=== PATIENT | female | born 1965 | race Caucasian/White ===

== ENCOUNTER 2017-01-31 16:34 | Inpatient (IN) | payer BC ==
[~2017-01-31] VITALS: Ht 165.1 cm; Wt 62.9 kg
[2017-01-31] MEDS ORDERED: SODIUM CHLORIDE 0.9% 1000ML 1,000 ML IV STA (16:44)
[2017-01-31] MEDS ORDERED: ONDANSETRON INJ 2 MG/ML 2 ML VIAL IV STA (16:44)
[2017-01-31] MEDS ORDERED: HYDROmorphone INJ 1 MG/ML SYR IV STA (16:44)
[2017-01-31 17:22] LABS: BASO % 0.4 %; BASO ABS # 0.04 K/uL (0-0.2); COMPLETE YES; EOS % 0.9 %; HEMATOCRIT 37.2 % (37-47); IG% 0.2 %; MEAN CELL VOLUME 85.7 fL (80-100); MEAN CORPUSCULAR HEMOGLOBIN 28.1 pg (25-34); MEAN CORPUSCULAR HGB CONC 32.8 g/dl (32-36); MONO % 7.9 %; NEUT % 71.6 %; PLATELET COUNT 271 K/uL (130-400); RED BLOOD COUNT 4.34 M/uL (4.2-5.4); WHITE BLOOD COUNT 10.02 K/uL (4.8-10.8)
--- NOTE | 2017-01-31 17:29 | DIAGNOSTIC IMAGING REPORT ---
CT OF THE ABDOMEN AND PELVIS WITHOUT CONTRAST, STONE PROTOCOL CLINICAL HISTORY: Left flank pain and nausea. COMPARISON STUDY: None. TECHNIQUE: Helical axial images of the abdomen and pelvis were obtained without IV or oral contrast according to renal stone protocol. A dose lowering technique was utilized adhering to the principles of ALARA. FINDINGS: An 8 mm x 4 mm distal left ureteral calculus results in moderate left hydronephrosis and hydroureter. There is a 4 mm calculus within the lower pole of the right kidney. There are no right ureteral calculi. There is mild left perinephric and periureteral infiltration. Evaluation of the remainder of the abdomen and pelvis is suboptimal as unenhanced exam. There are two intermediate attenuation lesions within the lateral segment of the left liver that measure up to 1 cm. These are low suspicion. There is minimal layering hyperdense material within the gallbladder. The spleen, adrenal glands and pancreas are normal. There is no biliary or pancreatic ductal dilatation. There is no evidence for a bowel obstruction. No suspicious skeletal lesions are present. IMPRESSION: 1. 8 mm x 4 mm distal left ureteral calculus with resultant moderate left hydroureteronephrosis. 2. 4 mm right renal calculus. 3. Two intermediate attenuation lateral segment hepatic lesions. These are likely benign but a follow-up nonemergent ultrasound is recommended. Electronically signed by: Dominick Mendoza M.D. 01/31/2017 5:27 PM Dictated Date/Time: 01/31/2017 5:20 PM
[2017-01-31 17:44] LABS: BUN/CREATININE RATIO 17.6 (10-20); CALCIUM 9.2 mg/dl (8.5-10.1); CREATININE 1.1 mg/dl (0.60-1.20); POTASSIUM 3.6 mmol/L (3.5-5.1)
[2017-01-31] MEDS ORDERED: HYDROmorphone INJ 0.5 MG/0.5 ML SYR IV PRN (18:45)
[2017-01-31] MEDS ORDERED: ACETAMINOPHEN 325 MG TAB PO PRN (18:45)
[2017-01-31] MEDS ORDERED: ONDANSETRON INJ 2 MG/ML 2 ML VIAL IV PRN (18:45)
--- NOTE | 2017-01-31 18:50 | EMERGENCY ROOM VISIT NOTE ---
History First contact with patient: 16:39 Chief Complaint: FLANK PAIN Stated Complaint: L SIDE & FLANK PAIN History of Present Illness The patient is a 51 year old female who presents to the Emergency Room with complaints of left flank pain. The patient is from [place] and is in town taking care of her [id number]. She states that over the past 1 week, she has had a feeling of incomplete emptying but has not had any dysuria, hematuria or pain. She states that approximately 30 minutes prior to arrival, she had a sudden onset of severe left flank pain. The pain radiates into her abdomen. She denies any history of kidney stones or kidney infections. She denies any trauma to the flank. She rates her discomfort a 10/10. She reports nausea, but no vomiting. She denies chest pain, shortness of breath, hematuria, vaginal bleeding/discharge or changes in bowel movements. Review of Systems A complete 10 point review of systems was reviewed with the patient with pertinent positives and negatives as per history of present illness. All else were negative. Past Medical/Surgical History Medical Problems: (1) Nephrolithiasis Social History Smoking Status: Never Smoker Current/Historical Medications No Active Prescriptions or Reported Meds Physical Exam Vital Signs Date Time Temp Pulse Resp B/P (MAP) Pulse Ox O2 Delivery O2 Flow Rate FiO2 01/31/17 18:24 52 14 142/75 99 Room Air 01/31/17 16:55 59 01/31/17 16:53 36.7 58 22 149/90 100 Room Air Physical Exam VITALS: Vitals are noted on the nurse's note and reviewed by myself. Vital signs stable. GENERAL: This is a 51-year-old female, writhing on the bed and appears to be in pain, nondiaphoretic, well-developed well-nourished. HEART: Regular rate and rhythm without murmurs gallops or rubs. LUNGS: Clear to auscultation bilaterally without wheezes, rales or rhonchi. ABDOMEN: Positive bowel sounds x 4. Soft, moderate tenderness over the left lower quadrant. No guarding or rebound tenderness. MUSCULOSKELETAL: Positive left CVA tenderness. NEURO: Patient was alert and oriented to person place and time. Medical Decision & Procedures ER Provider Diagnostic Interpretation: CT OF THE ABDOMEN AND PELVIS WITHOUT CONTRAST, STONE PROTOCOL FINDINGS: An 8 mm x 4 mm distal left ureteral calculus results in moderate left hydronephrosis and hydroureter. There is a 4 mm calculus within the lower pole of the right kidney. There are no right ureteral calculi. There is mild left perinephric and periureteral infiltration. Evaluation of the remainder of the abdomen and pelvis is suboptimal as unenhanced exam. There are two intermediate attenuation lesions within the lateral segment of the left liver that measure up to 1 cm. These are low suspicion. There is minimal layering hyperdense material within the gallbladder. The spleen, adrenal glands and pancreas are normal. There is no biliary or pancreatic ductal dilatation. There is no evidence for a bowel obstruction. No suspicious skeletal lesions are present. IMPRESSION: 1. 8 mm x 4 mm distal left ureteral calculus with resultant moderate left hydroureteronephrosis. 2. 4 mm right renal calculus. 3. Two intermediate attenuation lateral segment hepatic lesions. These are likely benign but a follow-up nonemergent ultrasound is recommended. Laboratory Results 01/31/17 17:06 Red Blood Count 4.34, Mean Corpuscular Volume 85.7, Mean Corpuscular Hemoglobin 28.1, Mean Corpuscular Hemoglobin Concent 32.8, Mean Platelet Volume 9.0, Neutrophils (%) (Auto) 71.6, Lymphocytes (%) (Auto) 19.0, Monocytes (%) (Auto) 7.9, Eosinophils (%) (Auto) 0.9, Basophils (%) (Auto) 0.4, Neutrophils # (Auto) 7.18, Lymphocytes # (Auto) 1.90, Monocytes # (Auto) 0.79, Eosinophils # (Auto) 0.09, Basophils # (Auto) 0.04 01/31/17 17:06 Test 01/31/17 16:44 01/31/17 17:06 White Blood Count 10.02 K/uL (4.8-10.8) Red Blood Count 4.34 M/uL (4.2-5.4) Hemoglobin 12.2 g/dL (12.0-16.0) Hematocrit 37.2 % (37-47) Mean Corpuscular Volume 85.7 fL (80-100) Mean Corpuscular Hemoglobin 28.1 pg (25-34) Mean Corpuscular Hemoglobin Concent 32.8 g/dl (32-36) Platelet Count 271 K/uL (130-400) Mean Platelet Volume 9.0 fL (7.4-10.4) Neutrophils (%) (Auto) 71.6 % Lymphocytes (%) (Auto) 19.0 % Monocytes (%) (Auto) 7.9 % Eosinophils (%) (Auto) 0.9 % Basophils (%) (Auto) 0.4 % Neutrophils # (Auto) 7.18 K/uL (1.4-6.5) Lymphocytes # (Auto) 1.90 K/uL (1.2-3.4) Monocytes # (Auto) 0.79 K/uL (0.11-0.59) Eosinophils # (Auto) 0.09 K/uL (0-0.5) Basophils # (Auto) 0.04 K/uL (0-0.2) RDW Standard Deviation 42.8 fL (36.4-46.3) RDW Coefficient of Variation 13.6 % (11.5-14.5) Immature Granulocyte % (Auto) 0.2 % Immature Granulocyte # (Auto) 0.02 K/uL (0.00-0.02) Anion Gap 11.0 mmol/L (3-11) Est Creatinine Clear Calc Drug Dose 53.8 ml/min Estimated GFR () 66.8 Estimated GFR (Non- 57.7 BUN/Creatinine Ratio 17.6 (10-20) Calcium Level 9.2 mg/dl (8.5-10.1) Total Bilirubin 0.4 mg/dl (0.2-1) Direct Bilirubin 0.1 mg/dl (0-0.2) Aspartate Amino Transf (AST/SGOT) 18 U/L (15-37) Alanine Aminotransferase (ALT/SGPT) 23 U/L (12-78) Alkaline Phosphatase 58 U/L (45-117) Total Protein 7.4 gm/dl (6.4-8.2) Albumin 3.8 gm/dl (3.4-5.0) Medications Administered Medications (Trade) Dose Ordered Sig/Maki Route Start Time Stop Time Status Last Admin Dose Admin Sodium Chloride 1,000 ml @ 999 mls/hr Q1H1M STAT IV 01/31/17 16:44 01/31/17 17:44 DC 01/31/17 16:44 999 MLS/HR Ondansetron HCl (Zofran Inj) 4 mg NOW STAT IV 01/31/17 16:44 01/31/17 16:45 DC 01/31/17 16:51 4 MG Hydromorphone HCl (Dilaudid Inj) 1 mg NOW STAT IV 01/31/17 16:44 01/31/17 16:45 DC 01/31/17 16:51 1 MG ED Course The patient was evaluated as above. Labs were drawn and IV access was obtained. Patient was medicated with 1 mg Dilaudid and [address] of the abdomen and pelvis was performed and read by radiology as above. Patient was reevaluated and felt slightly better. Options of care were discussed with the patient including discharge home versus admission for pain control and management. The patient states that her pain is still a 5/10 and she would prefer to be admitted. Case was discussed with the [facility], Dr. Monk. They agreed to evaluate the patient for admission. Medical Decision Differential diagnosis includes kidney stone, pyelonephritis, ovarian torsion, cholecystitis, pancreatitis, among others. The patient is a 51-year-old female who presents today complaining of sitting onset of left flank pain. She received a total of 8 mg morphine en route and still complained of 10/10 pain on my evaluation. Labs revealed no leukocytosis or anemia. Kidney and liver functions are within normal limits. Patient is afebrile. CT of the abdomen and pelvis showed an 8 mm left ureteral calculus with hydronephrosis. Patient was still having a fair amount of pain after 2 doses of morphine dose of IV Dilaudid. Patient was admitted to the [facility] service for further treatment. Urine was pending at that time, however I do not have high clinical suspicion for infection. Medication Reconcilliation Current Medication List: was personally reviewed by dc Blood Pressure Screening Patient's blood pressure: Normal blood pressure Blood pressure disposition: Elevated BP felt to be situational Impression Primary Impression: Left ureteral calculus Departure Information Prescriptions No Active Prescriptions or Reported Meds Referrals No Doctor, Assigned (PCP) Patient Instructions [facility]
[2017-01-31 18:58] LABS: PREG INTERNAL NEGATIVE QC NEG CLEAR BACKGROUND; PREG INTERNAL POSITIVE QC POS CONTROL LINE; URINE APPEARANCE CLOUDY (CLEAR); URINE BILIRUBIN NEG (NEG); URINE COLOR YELLOW; URINE EPITHELIAL CELL AUTO >30 /lpf (0-5); URINE NITRITE NEG (NEG); URINE PH >= 9.0 (4.5-7.5); URINE SPECIFIC GRAVITY 1.018 (1.000-1.030); UROBILINOGEN NEG (NEG); ZZUR CULT IF INDIC CLEAN CATCH NO
[2017-01-31 18:59] LABS: MANUAL MICROSCOPIC REQUIRED? NO; REVIEW REQ? YES
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
[2017-01-31] MEDS ORDERED: MoRPHine SULFATE 2 MG/ML CARP IV PRN (19:15)
[2017-01-31 20:15] VITALS: BP 113/69; PULSE 48; TEMP 36.5; O2SAT 97; Ht 165.1 cm; Wt 62.9 kg
[2017-01-31 20:18] VITALS: BP 113/69; PULSE 48; TEMP 36.5; O2SAT 97
[2017-01-31] MEDS: SODIUM CHLORIDE 0.9% 1000ML 1,000 ML IV SCH (20:32)
[2017-01-31 23:04] VITALS: BP 109/64; PULSE 57; TEMP 36.8; O2SAT 94
[2017-02-01] VITALS (8 sets, daily range): BP systolic 109–135; BP diastolic 66–72; PULSE 39–82; TEMP 36.3–36.7; O2SAT 95–100
[2017-02-01] MEDS: SODIUM CHLORIDE 0.9% 1000ML 1,000 ML IV SCH ×3 (02:26→19:22)
[2017-02-01 07:02] LABS: BASO % 0.3 %; BASO ABS # 0.02 K/uL (0-0.2); COMPLETE YES; EOS % 1.3 %; HEMATOCRIT 31.1 % (37-47); IG% 0.1 %; LYMPH % 27.2 %; LYMPH ABS # 2.05 K/uL (1.2-3.4); MEAN CELL VOLUME 87.9 fL (80-100); MEAN CORPUSCULAR HEMOGLOBIN 28.5 pg (25-34); MEAN CORPUSCULAR HGB CONC 32.5 g/dl (32-36); MONO % 7.3 %; NEUT % 63.8 %; PLATELET COUNT 215 K/uL (130-400); RED BLOOD COUNT 3.54 M/uL (4.2-5.4); WHITE BLOOD COUNT 7.54 K/uL (4.8-10.8)
[2017-02-01 07:49] LABS: BUN/CREATININE RATIO 22.8 (10-20); CALCIUM 8.2 mg/dl (8.5-10.1); CREATININE 0.76 mg/dl (0.60-1.20); POTASSIUM 4.1 mmol/L (3.5-5.1)
[2017-02-01] MEDS ORDERED: CIPROFLOXACIN 400MG / 200ML D5W IV ONE (08:30)
[2017-02-01] MEDS ORDERED: CIPROFLOXACIN 400MG / D5W IV SCH (08:30)
--- NOTE | 2017-02-01 08:44 | DIAGNOSTIC IMAGING REPORT ---
CHEST 2 VIEWS ROUTINE, KUB HISTORY: 51 years-old Female preoperative exam. History of kidney stone. COMPARISON: CT abdomen and pelvis 01/31/2017 TECHNIQUE: Frontal and lateral views of the chest with KUB radiograph. FINDINGS: Cardiomediastinal and hilar silhouettes are within normal limits. There is no pneumothorax, pleural effusion or focal airspace consolidation. Bones of the chest appear to be grossly intact. 8 mm calculus in the region of the left ureterovesicular junction is redemonstrated. Additionally, there are phleboliths within the pelvis. 4 mm calculus of the inferior pole right kidney is redemonstrated. Bowel gas pattern is nonobstructive. There is no fracture. IMPRESSION: 1. 8 mm calculus of the left ureterovesicular junction is redemonstrated. 2. 4 mm nonobstructing calculus of the inferior pole right kidney is unchanged. 3. No acute cardiopulmonary process. The above report was generated using voice recognition software. It may contain grammatical, syntax or spelling errors. Electronically signed by: Mane Chung M.D. 02/01/2017 8:42 AM Dictated Date/Time: 02/01/2017 8:39 AM
--- NOTE | 2017-02-01 11:15 | Urology Consultation ---
History General Date of Service: Feb 01, 2017. Chief Complaint: left UVJ stone Primary Care Physician: No Doctor, Assigned Pt seen a urologist before?: No History of Present Illness 51 yo female presents to [facility] with c/o left flank pain that became severe yesterday. She is visiting her in-laws from [place], and had planned to leave town today. CT scan showing an 8mm left UVJ stone. She has no previous hx of stones. Pain is currently tolerable. Denies n/v. Denies dysuria or hematuria. She is afebrile. White count and Cr are normal. Imaging Imaging: CT, KUB Laboratory Last 24 Hours Test 01/31/17 17:06 01/31/17 18:42 02/01/17 06:37 White Blood Count 10.02 K/uL 7.54 K/uL Red Blood Count 4.34 M/uL 3.54 M/uL Hemoglobin 12.2 g/dL 10.1 g/dL Hematocrit 37.2 % 31.1 % Mean Corpuscular Volume 85.7 fL 87.9 fL Mean Corpuscular Hemoglobin 28.1 pg 28.5 pg Mean Corpuscular Hemoglobin Concent 32.8 g/dl 32.5 g/dl Platelet Count 271 K/uL 215 K/uL Mean Platelet Volume 9.0 fL 9.0 fL Neutrophils (%) (Auto) 71.6 % 63.8 % Lymphocytes (%) (Auto) 19.0 % 27.2 % Monocytes (%) (Auto) 7.9 % 7.3 % Eosinophils (%) (Auto) 0.9 % 1.3 % Basophils (%) (Auto) 0.4 % 0.3 % Neutrophils # (Auto) 7.18 K/uL 4.81 K/uL Lymphocytes # (Auto) 1.90 K/uL 2.05 K/uL Monocytes # (Auto) 0.79 K/uL 0.55 K/uL Eosinophils # (Auto) 0.09 K/uL 0.10 K/uL Basophils # (Auto) 0.04 K/uL 0.02 K/uL RDW Standard Deviation 42.8 fL 46.1 fL RDW Coefficient of Variation 13.6 % 14.1 % Immature Granulocyte % (Auto) 0.2 % 0.1 % Immature Granulocyte # (Auto) 0.02 K/uL 0.01 K/uL Sodium Level 142 mmol/L 143 mmol/L Potassium Level 3.6 mmol/L 4.1 mmol/L Chloride Level 107 mmol/L 112 mmol/L Carbon Dioxide Level 24 mmol/L 27 mmol/L Anion Gap 11.0 mmol/L 4.0 mmol/L Blood Urea Nitrogen 19 mg/dl 17 mg/dl Creatinine 1.10 mg/dl 0.76 mg/dl Est Creatinine Clear Calc Drug Dose 53.8 ml/min 77.9 ml/min Estimated GFR () 66.8 104.5 Estimated GFR (Non- 57.7 90.2 BUN/Creatinine Ratio 17.6 22.8 Random Glucose 105 mg/dl 95 mg/dl Calcium Level 9.2 mg/dl 8.2 mg/dl Total Bilirubin 0.4 mg/dl Direct Bilirubin 0.1 mg/dl Aspartate Amino Transf (AST/SGOT) 18 U/L Alanine Aminotransferase (ALT/SGPT) 23 U/L Alkaline Phosphatase 58 U/L Total Protein 7.4 gm/dl Albumin 3.8 gm/dl Urine Color YELLOW Urine Appearance CLOUDY Urine pH >= 9.0 Urine Specific Kersey 1.018 Urine Protein NEG Urine Glucose (UA) NEG Urine Ketones TRACE Urine Occult Blood 1+ Urine Nitrite NEG Urine Bilirubin NEG Urine Urobilinogen NEG Urine Leukocyte Esterase TRACE Urine WBC (Auto) 1-5 /hpf Urine RBC (Auto) 10-30 /hpf Urine Hyaline Casts (Auto) 1-5 /lpf Urine Epithelial Cells (Auto) >30 /lpf Urine Bacteria (Auto) NEG Urine Renal Epithelial Cells 0-5 /lpf Urine Test NEG Hepatitis C Antibody Screen NEG Problem List Medical Problems: (1) Left ureteral calculus Status: Acute Past History other (bradycardia) Past Surgical History: no surgical history Family History FH: colon cancer MOTHER FH: pancreatic cancer FATHER Social History Smoking: non-smoker Alcohol: occasional Marital status: Housing status: lives with family, lives with significant other Allergies Coded Allergies: No Known Allergies (Unverified , 01/31/17) Medications Home Medications: Home Meds and Scripts Medications Dose Route/Sig Max Daily Dose Days Date Category No Active Prescriptions or Reported Medications Rx Inpatient Medications: Current Inpatient Medications Medications (Trade) Dose Ordered Sig/Maki Route Start Time Stop Time Status Last Admin Dose Admin Acetaminophen (Tylenol Tab) 650 mg Q4H PRN PO 01/31/17 18:45 03/02/17 18:44 Ondansetron HCl (Zofran Inj) 4 mg Q6H PRN IV 01/31/17 18:45 03/02/17 18:44 01/31/17 19:57 4 MG Hydromorphone HCl (Dilaudid Inj) 0.5 mg Q3HWA PRN IV 01/31/17 18:45 02/14/17 18:44 01/31/17 19:57 0.5 MG Sodium Chloride 1,000 ml @ 125 mls/hr Q8H IV 01/31/17 18:46 03/02/17 18:45 02/01/17 10:26 125 MLS/HR Oxycodone/ Acetaminophen (Percocet 5-325mg Tab) 1 tab Q4H PRN PO 01/31/17 19:15 02/14/17 19:14 Morphine Sulfate (MoRPHine SULFATE INJ) 1 mg Q4H PRN IV 01/31/17 19:15 02/14/17 19:14 Ciprofloxacin/ Dextrose 400 mg/ Prmx 200 ml @ 100 mls/hr PREOP IV 02/01/17 08:30 02/01/17 18:00 Review of Systems Review of Systems Constitutional: No fever, No chills Eyes: No blurred vision Neurological: No dizzy Endocrine: No excessive thirst Gastrointestinal: No abdominal pain, No nausea, No vomiting Cardiovascular: No chest pain Respiratory: No shortness of breath Skin: No rash Musculoskeletal: No back pain Female : No painful urination, No blood in urine Physical Exam Vital Signs: Vital Signs Past 12 Hours Date Time Temp Pulse Resp B/P (MAP) Pulse Ox O2 Delivery O2 Flow Rate FiO2 02/01/17 07:10 42 02/01/17 07:10 Room Air 02/01/17 07:05 36.7 39 18 109/67 (81) 96 Room Air 02/01/17 00:30 Room Air Physical Exam: General Appearance: no apparent distress Eyes: bilateral eyes normal inspection ENT: hearing grossly normal Neck: no JVD Respiratory/Chest: no respiratory distress, no accessory muscle use Cardiovascular: no JVD Extremities: normal inspection Neurologic/Psychiatric: alert, normal mood/affect, oriented x 3 Skin: normal color Assessment & Plan Assessment & Plan Treatment Planned: ureteroscopy w/ laser, cystoscopy w/ stent A/P: 8mm left UVJ stone Tx options discussed with the pt today have included a trial of passage with MET (unlikely given the size of the stone), ESWL (not available until Tuesday of this week), and a cystoscopy with left ureteral stent placement and laser lithotripsy. She prefers a left URS/LL with the hopes that she will be able to travel home to [place] after. Risks and benefits of the procedure discussed with the pt. All questions answered. Consent obtained. Will get a pre-op chest x-ray and EKG. In regards to her bradycardia, will consult anesthesia and the hospitalist for input. She is an active female, but noted to have a pulse of 39 earlier this morning. The pt will need to establish care with a urologist in [place] for stent removal. Recommend she take copies of all hospital records and films for review. Thanks for the consult. Will continue to follow along with primary service.
[2017-02-01] MEDS ORDERED: DEXAMETHASONE SOD INJ 4 MG/ML VIAL ONE (14:22)
[2017-02-01] MEDS ORDERED: LIDOCAINE HCL 2% 2 ML VIAL (20MG/ML) ONE (14:22)
[2017-02-01] MEDS ORDERED: PROPOFOL IV EMULSION 10 MG/ML 20 ML VIAL IV ONE (14:22)
[2017-02-01] MEDS ORDERED: ONDANSETRON INJ 2 MG/ML 2 ML VIAL ONE (14:22)
[2017-02-01] MEDS ORDERED: MIDAZOLAM HCL 1 MG/ML 2ML VIAL ONE (14:22)
[2017-02-01] MEDS ORDERED: FENTANYL CITRATE INJ 50 MCG/1 ML 2 ML VIAL ONE (14:22)
[2017-02-01] MEDS ORDERED: KETOROLAC TROMETHAMINE 30 MG/ML VIAL ONE (14:22)
[2017-02-01] MEDS ORDERED: PROMETHAZINE HCL INJ 6.25 MG in SODIUM CHLORIDE 0.9% 50ML 50 ML IV PRN (15:30)
[2017-02-01] MEDS ORDERED: ONDANSETRON INJ 2 MG/ML 2 ML VIAL IV PRN (15:30)
[2017-02-01] MEDS ORDERED: EpHEDrine SULFATE INJ 50 MG/ML AMP IV PRN (15:30)
[2017-02-01] MEDS ORDERED: FENTANYL CITRATE INJ 50 MCG/1 ML 2 ML VIAL IV PRN (15:30)
[2017-02-01] MEDS ORDERED: ATROPINE SULFATE 0.1 MG/ML 5ML SYR IV PRN (15:30)
--- NOTE | 2017-02-01 15:56 | Hospitalist Progress Note ---
Hospitalist Progress Note Date of Service Feb 01, 2017. (Rosalee Manning PA-C) Subjective Pt evaluation today including: chart review, lab review, review of studies, conversation w/ individual pension consultant Pt was attempted to be seen twice early afternoon, however was in preop and then undergoing stent placement. Chart reviewed. (Rosalee Manning PA-C) Objective Vital Signs Date Time Temp Pulse Resp B/P (MAP) Pulse Ox O2 Delivery O2 Flow Rate FiO2 02/01/17 07:10 42 02/01/17 07:10 Room Air 02/01/17 07:05 36.7 39 18 109/67 (81) 96 Room Air 02/01/17 00:30 Room Air 01/31/17 23:04 36.8 57 16 109/64 (79) 94 Room Air 01/31/17 20:45 Room Air 01/31/17 20:18 36.5 48 18 113/69 (84) 97 Room Air 01/31/17 20:15 36.5 48 16 113/69 97 Room Air 01/31/17 20:06 92 18 140/83 93 01/31/17 18:24 52 14 142/75 99 Room Air 01/31/17 16:55 59 01/31/17 16:53 36.7 58 22 149/90 100 Room Air (Rosalee Manning PA-C) Laboratory Results Last 24 Hours Test 01/31/17 17:06 01/31/17 18:42 02/01/17 06:37 White Blood Count 10.02 K/uL 7.54 K/uL Red Blood Count 4.34 M/uL 3.54 M/uL Hemoglobin 12.2 g/dL 10.1 g/dL Hematocrit 37.2 % 31.1 % Mean Corpuscular Volume 85.7 fL 87.9 fL Mean Corpuscular Hemoglobin 28.1 pg 28.5 pg Mean Corpuscular Hemoglobin Concent 32.8 g/dl 32.5 g/dl Platelet Count 271 K/uL 215 K/uL Mean Platelet Volume 9.0 fL 9.0 fL Neutrophils (%) (Auto) 71.6 % 63.8 % Lymphocytes (%) (Auto) 19.0 % 27.2 % Monocytes (%) (Auto) 7.9 % 7.3 % Eosinophils (%) (Auto) 0.9 % 1.3 % Basophils (%) (Auto) 0.4 % 0.3 % Neutrophils # (Auto) 7.18 K/uL 4.81 K/uL Lymphocytes # (Auto) 1.90 K/uL 2.05 K/uL Monocytes # (Auto) 0.79 K/uL 0.55 K/uL Eosinophils # (Auto) 0.09 K/uL 0.10 K/uL Basophils # (Auto) 0.04 K/uL 0.02 K/uL RDW Standard Deviation 42.8 fL 46.1 fL RDW Coefficient of Variation 13.6 % 14.1 % Immature Granulocyte % (Auto) 0.2 % 0.1 % Immature Granulocyte # (Auto) 0.02 K/uL 0.01 K/uL Sodium Level 142 mmol/L 143 mmol/L Potassium Level 3.6 mmol/L 4.1 mmol/L Chloride Level 107 mmol/L 112 mmol/L Carbon Dioxide Level 24 mmol/L 27 mmol/L Anion Gap 11.0 mmol/L 4.0 mmol/L Blood Urea Nitrogen 19 mg/dl 17 mg/dl Creatinine 1.10 mg/dl 0.76 mg/dl Est Creatinine Clear Calc Drug Dose 53.8 ml/min 77.9 ml/min Estimated GFR () 66.8 104.5 Estimated GFR (Non- 57.7 90.2 BUN/Creatinine Ratio 17.6 22.8 Random Glucose 105 mg/dl 95 mg/dl Calcium Level 9.2 mg/dl 8.2 mg/dl Total Bilirubin 0.4 mg/dl Direct Bilirubin 0.1 mg/dl Aspartate Amino Transf (AST/SGOT) 18 U/L Alanine Aminotransferase (ALT/SGPT) 23 U/L Alkaline Phosphatase 58 U/L Total Protein 7.4 gm/dl Albumin 3.8 gm/dl Urine Color YELLOW Urine Appearance CLOUDY Urine pH >= 9.0 Urine Specific Ransom 1.018 Urine Protein NEG Urine Glucose (UA) NEG Urine Ketones TRACE Urine Occult Blood 1+ Urine Nitrite NEG Urine Bilirubin NEG Urine Urobilinogen NEG Urine Leukocyte Esterase TRACE Urine WBC (Auto) 1-5 /hpf Urine RBC (Auto) 10-30 /hpf Urine Hyaline Casts (Auto) 1-5 /lpf Urine Epithelial Cells (Auto) >30 /lpf Urine Bacteria (Auto) NEG Urine Renal Epithelial Cells 0-5 /lpf Urine Test NEG Hepatitis C Antibody Screen NEG (Rosalee Manning PA-C) Assessment and Plan This is a 51-year-old female with no past medical history who presents with left -sided flank pain started [address] abd/pelvis was completed showing a 8 mm x 4 mm distal left ureteral calculus with resultant moderate left hydroureteronephrosis. Nephrolithiasis with associated BOBBY - Admit to [facility] - CT abd/pelvis 01/31: 8 mm x 4 mm distal left ureteral calculus with resultant moderate left hydroureteronephrosis. 4 mm right renal calculus. Two intermediate attenuation lateral segment hepatic lesions. These are likely benign but a follow-up nonemergent ultrasound is recommended. - Will need f/u upon discharge - Urology consuled: Pt undergoing stent placement today - pt was cleared for surgical procedure with bradycardia overnight with HR=39 as documented on 12 lead EKG. - NPO for procedure, allow regular diet afterwards - Pain control with Dilaudid 0.5 mg IV q3H, Tylenol 650 mg Q6H - CXR / KUB 02/01/17 reviewed: IMPRESSION: 1. 8 mm calculus of the left ureterovesicular junction is redemonstrated. 2. 4 mm nonobstructing calculus of the inferior pole right kidney is unchanged. 3. No acute cardiopulmonary process. - Cr.= 1.1 at time of admission trended down to 0.76 with IVFs overnight. - Strain all urine - UA +esterase, culture in process - afebrile and without leukocytosis DVT prophylaxis: - Teds, SCDs, ambulatory CODE STATUS: Full code Disposition: Patient from home, lives with , discharge when medically stable (Rosalee Manning PA-C) Attending Attestation: Pt seen/examined, chart reviewed, care plan d/w JOAQUIN Manning. I agree w/ the davis components of her documentation. I saw the patient post-op and she was resting comfortably with minimal pain. No cp or sob. She voices concern about her low HR but is aware she has had this for some time. Cycles 2x/week without any limiting cardiopulmonary symptoms. VSS no fever gen - NAD heart - sinus shae, no murmur, s1, s2 abd - soft, NT, ND, BS+ A/P: 1. s/p left sided distal renal stone laser litho with stent placement - cont fluids and pain control overnight. 2. bradycardia - EKG is normal w/ exception of HR. check TSH in am. consider cardiology f/u as outpatient if patient desires. d/c in am Gagan CANALES MD (Freddy Canales MD)
--- NOTE | 2017-02-01 15:58 | [facility] Operative Report ---
Operative Report Operative Date Feb 01, 2017. Pre-Operative Diagnosis Left UVJ Stone Post-Operative Diagnosis Left UVJ Stone Procedure(s) Performed Urethral dilation, Cystoscopy, left ureteroscopy, left laser lithotripsy, left ureteral stent placement [id number] Surgeon Dr Guzman Supervisor [employer] M[employer] Repair Surgeon(s) none Estimated Blood Loss 0ml Findings #1 urethral stenosis #2 left distal ureteral calculus Specimens A. Left Ureteral Stone Drains [id number] Anesthesia Gen. Complication(s) None Disposition Recovery Room / PACU (stable) Indications Symptomatic left ureteral calculus Description of Procedure Abigail Chilel was identified in the preoperative holding area, appropriate informed consent was reviewed and completed and the patient was transported to the operating suite. Upon arrival she received appropriate preoperative antibiotics in the form of ciprofloxacin. Adequate general anesthesia was achieved and she was placed in dorsal lithotomy position where she was sterilely prepped and draped in standard fashion. I initially attempted to pass a 22 Georgian cystoscope with 30 lens. Generally she has a stenotic may meatus that could not accommodate a 22 Georgian cystoscope. I gently dilated this with the obturator alone, however I was still unable to pass the scope. I moved on to the radial dilation of the urethra which subsequently allowed easy accommodation the 22 Georgian cystoscope. Upon entry into the bladder performed a full inspection of the bladder. Were no mucosal abnormalities and the ureters were located in orthotopic position. I turned my attention to the left orifice and cannulated it with a 6 Georgian open-ended catheter and a sensor wire. The wire advanced the kidney under fluoroscopic guidance without difficulty. Alongside the wire I then passed a semirigid ureteroscope. After guiding this into the distal ureter I encountered a flat discoid shaped the stone. The stone was not impacted. After inspecting the remaining portion of the ureter that I could reach with my semirigid ureteroscope, I proceeded to laser the stone and fragments. After the stone was thoroughly fragmented, I irrigated the stone debris out of the ureter. Once I confirmed cleared ureter, I concluded my ureteroscopic portion of the case and withdrew the ureteroscope. I then proceeded to place a 6 Georgian by 24cm double-J ureteral stent over the existing safety wire. Stone fragments were irrigated out of the bladder and the bladder was decompressed. She was extubated and taken to the PACU in stable condition. The stones were sent for chemical analysis. Abigail Chilel is a resident of [place], and will be returning home very shortly. I have stressed to her before the case - and to her after the case - the importance of following up with the urologist in the near future for stent removal. We will attempt to help with this process as much as possible. I attest to the content of the Intraoperative Record and any orders documented therein. Any exceptions are noted below.
--- NOTE | 2017-02-01 16:24 | Anesthesiology Progress Note ---
Anesthesia Post Op Note Date & Time Feb 01, 2017 at 16:23 Vital Signs Pain Intensity: 0 Vital Signs Past 12 Hours Date Time Temp Pulse Resp B/P (MAP) Pulse Ox O2 Delivery O2 Flow Rate FiO2 02/01/17 16:20 53 12 131/74 100 Nasal Cannula 2 02/01/17 16:10 47 13 132/76 100 Oxymask 10 02/01/17 16:00 40 15 93/59 (67) 99 Oxymask 10 02/01/17 15:52 36.1 43 14 90/57 (68) 99 Oxymask 10 02/01/17 07:10 42 02/01/17 07:10 Room Air 02/01/17 07:05 36.7 39 18 109/67 (81) 96 Room Air Notes Mental Status: alert / awake / arousable, participated in evaluation Pt Amnestic to Procedure: Yes Nausea / Vomiting: adequately controlled Pain: adequately controlled Airway Patency, RR, SpO2: stable & adequate BP & HR: stable & adequate Hydration State: stable & adequate Anesthetic Complications: no major complications apparent
[2017-02-01] MEDS ORDERED: NURSING VERBAL MED ORDER ONE (16:25)
[2017-02-01] MEDS ORDERED: MEPERIDINE HCL 25 MG/ML CARP ONE (16:26)
[2017-02-01] MEDS: OXYCODONE/ACETAMINOPHEN 5-325 TAB PO PRN (23:46)
[2017-02-02] MEDS: SODIUM CHLORIDE 0.9% 1000ML 1,000 ML IV SCH ×2 (02:37→10:46)
[2017-02-02 03:05] VITALS: BP 142/79; PULSE 47; TEMP 36.7; O2SAT 98
[2017-02-02 07:32] LABS: BASO % 0.2 %; BASO ABS # 0.02 K/uL (0-0.2); COMPLETE YES; EOS % 0.6 %; HEMATOCRIT 31.4 % (37-47); IG% 0.2 %; LYMPH % 23.1 %; LYMPH ABS # 1.93 K/uL (1.2-3.4); MEAN CELL VOLUME 87.7 fL (80-100); MEAN CORPUSCULAR HEMOGLOBIN 29.3 pg (25-34); MEAN CORPUSCULAR HGB CONC 33.4 g/dl (32-36); MEAN PLATELET VOLUME 9.3 fL (7.4-10.4); NEUT % 67.9 %; PLATELET COUNT 216 K/uL (130-400); RED BLOOD COUNT 3.58 M/uL (4.2-5.4); WHITE BLOOD COUNT 8.36 K/uL (4.8-10.8)
[2017-02-02 07:59] VITALS: BP 104/78; PULSE 54; TEMP 36.7; O2SAT 97
[2017-02-02 08:03] VITALS: O2SAT 97
[2017-02-02 08:08] LABS: BUN/CREATININE RATIO 23.6 (10-20); CALCIUM 8.4 mg/dl (8.5-10.1); CREATININE 0.73 mg/dl (0.60-1.20); POTASSIUM 4.3 mmol/L (3.5-5.1)
--- NOTE | 2017-02-02 08:11 | Progress Note ---
Subjective Date of Service: Feb 02, 2017. Subjective Pt evaluation today including: conversation w/ patient, physical exam, chart review, lab review Tolerated her procedure very well yesterday Minimal stent discomfort today No fevers no chills no dysuria Pain well-controlled Problem List Medical Problems: (1) Left ureteral calculus Status: Acute Review of Systems Constitutional: No see HPI, No fever, No chills, No sweats, No weight loss, No weakness, No fatigue, No problem reported Abdomen: No see HPI, No pain, No nausea, No vomiting, No diarrhea, No constipation, No GI bleeding, No problem reported Female : No see HPI, No dysuria, No urinary frequency, No hematuria, No incontinence, No abnormal vaginal bleeding, No vaginal discharge, No problem reported Objective Vital Signs Date Time Temp Pulse Resp B/P (MAP) Pulse Ox O2 Delivery O2 Flow Rate FiO2 02/02/17 08:03 97 Room Air 02/02/17 07:59 36.7 54 14 104/78 (87) 97 Room Air 02/02/17 07:15 Room Air 02/02/17 03:05 36.7 47 16 142/79 (100) 98 Room Air 02/01/17 23:40 Room Air 02/01/17 22:49 36.6 47 16 123/72 (89) 97 Room Air 02/01/17 20:00 36.7 48 14 128/72 (90) 98 Room Air 02/01/17 19:00 36.3 82 14 123/69 (87) 95 Room Air 02/01/17 18:19 36.7 43 14 123/66 (85) 99 Room Air 02/01/17 17:30 36.5 41 12 135/66 (89) 100 Room Air 02/01/17 17:00 Nasal Cannula 2.0 02/01/17 17:00 36.3 44 16 113/70 (84) 100 Nasal Cannula 2.0 02/01/17 17:00 Nasal Cannula 2.0 02/01/17 16:40 36.3 38 12 118/70 98 Nasal Cannula 2 02/01/17 16:30 40 12 126/60 100 Nasal Cannula 2 02/01/17 16:20 53 12 131/74 100 Nasal Cannula 2 02/01/17 16:10 47 13 132/76 100 Oxymask 10 02/01/17 16:00 40 15 93/59 (67) 99 Oxymask 10 02/01/17 15:52 36.1 43 14 90/57 (68) 99 Oxymask 10 Physical Exam General Appearance: no apparent distress Eyes: normal inspection ENT: hearing grossly normal Cardiovascular: no edema Abdomen: non tender, soft Laboratory Results Last 24 Hours Test 02/02/17 07:04 White Blood Count 8.36 K/uL Red Blood Count 3.58 M/uL Hemoglobin 10.5 g/dL Hematocrit 31.4 % Mean Corpuscular Volume 87.7 fL Mean Corpuscular Hemoglobin 29.3 pg Mean Corpuscular Hemoglobin Concent 33.4 g/dl Platelet Count 216 K/uL Mean Platelet Volume 9.3 fL Neutrophils (%) (Auto) 67.9 % Lymphocytes (%) (Auto) 23.1 % Monocytes (%) (Auto) 8.0 % Eosinophils (%) (Auto) 0.6 % Basophils (%) (Auto) 0.2 % Neutrophils # (Auto) 5.67 K/uL Lymphocytes # (Auto) 1.93 K/uL Monocytes # (Auto) 0.67 K/uL Eosinophils # (Auto) 0.05 K/uL Basophils # (Auto) 0.02 K/uL RDW Standard Deviation 45.7 fL RDW Coefficient of Variation 14.1 % Immature Granulocyte % (Auto) 0.2 % Immature Granulocyte # (Auto) 0.02 K/uL Sodium Level 144 mmol/L Potassium Level 4.3 mmol/L Chloride Level 114 mmol/L Carbon Dioxide Level 28 mmol/L Anion Gap 2.0 mmol/L Blood Urea Nitrogen 17 mg/dl Creatinine 0.73 mg/dl Est Creatinine Clear Calc Drug Dose 81.1 ml/min Estimated GFR () 109.7 Estimated GFR (Non- 94.7 BUN/Creatinine Ratio 23.6 Random Glucose 94 mg/dl Calcium Level 8.4 mg/dl Assessment and Plan Postoperative day #1 status post left ureteroscopy and laser lithotripsy Progressing well Plan for DC home today Patient will be returning to [place], I have asked her to take copies of her operative reports and discharge summary as well as a disc including her imaging studies She will arrange follow-up with the urologist there to have her stent removed
[2017-02-02 08:19] LABS: THYROID STIMULATING HORMONE 0.987 uIu/ml (0.300-4.500)
[2017-02-02] MEDS: OXYCODONE/ACETAMINOPHEN 5-325 TAB PO PRN (08:47)
--- NOTE | 2017-02-02 10:20 | Discharge Instructions ---
Discharge Instructions Date of Service Feb 02, 2017. Admission Reason for Admission: Nephrolithiasis Discharge Discharge Diagnosis / Problem: Left sided kidney stone Discharge Goals Goal(s): Decrease discomfort, Improve function, Increase independence, Improve disease control Activity Recommendations Activity Limitations: resume your previous activity Lifting Limitations: gradually increase as tolerated Exercise/Sports Limitations: gradually increase as tolerated May Resume Sexual Activity: when tolerated Shower/Bathe: no limitations Driving or Machine Use: DO NOT DRIVE for 24 hours after last dose of Percocet . Instructions / Follow-Up Instructions / Follow-Up You were admitted to [facility] [place] with left sided flank pain and diagnosed with left ureteral nephrolithiasis (kidney stone). - During your stay here you were treated with intravenous fluids, pain control and other supportive treatment - An EKG was completed and showed bradycardia (low heart rate into the high 30s - 50s), without any other abnormalities. Slow heart rate was determined to be due to athletic heart as no other symptoms or pathology was found. - Your TSH was evaluated and was 0.987 Procedures: A left ureteral stent and lithotripsy was completed on 02/01/[address] Guzman, (urology). This should be removed within 1- 2 weeks. You will need to schedule follow up with your urologist upon return home. Medications: You have been given a new prescription for percocet 1 tab every 4-6 hours, for breakthrough pain. You may alternate percocet with tylenol for pain relief, while taking no more than a total of 3000 mg of tylenol per day (including that with the percocet). Do not drive or use alcohol while taking percocet. You may also take pyridium 100mg every 8 hours as needed for burning, painful urination. This medication will likely make your urine look orange. Your tears from your eyes can also look orange. This is a NORMAL side effect. The pyridium has been sent to the [email or web address] on [facility]. Follow up: Follow up with your Primary Care Provider within 1 week. Follow up with Urology within 1 week, and plan for stent removal within 1-2 weeks. Safe travels back to [place]. PLEASE stop traveling very 1-2 hours to stretch and take a short walk to prevent formation of DVT (blood clots) in your legs on your journey home. Current Hospital Diet Patient's current hospital diet: Regular Diet Discharge Diet Recommended Diet: Regular Diet Procedures Procedures Performed: Urethral dilation, Cystoscopy, left ureteroscopy, left laser lithotripsy, left ureteral stent placement [id number] Pending Studies Studies pending at discharge: no Medical Emergencies . Who to Call and When: Medical Emergencies: If at any time you feel your situation is an emergency, please call 911 immediately. . Non-Emergent Contact Non-Emergency issues call your: Primary Care Provider Call Non-Emergent contact if: you have a fever (chills, sweats, chest pain, shortness of breath, abdominal pain,), temperature is above 100.5, your pain is not controlled, your pain is worsening, your pain is unusual for you, your pain is concerning you, you have any medication questions ( or if you have other concerns with your health. ) . Past History Medical & Surgical History: (1) Nephrolithiasis (2) Left ureteral calculus . "Provider Documentation" section prepared by Lizbeth Manning. . VTE Core Measure Inpt VTE Proph given/why not?: SHAILESH [place] Drug Monitoring Program Search Results: no issues identified
[2017-02-02] MEDS ORDERED: OXYC-57 PO (10:24)
[2017-02-02 10:58] VITALS: BP 104/78; PULSE 54; TEMP 36.7; O2SAT 97
[2017-02-02] MEDS ORDERED: PHEN-939 PO (12:13)
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
== END 2017-02-02 12:36 | disposition home or self-care (01) | DRG 669 ==
LOC: C.EDC 16:39 → C.MSW 18:46 → ENRESERV 19:13
PROVIDERS: ADMIT Family Medicine; ATTEND Internal Medicine
PROC: 0T778DZ Dilation of Left Ureter with Intraluminal Device, Via Natural or Artificial Opening Endoscopic (ICD-10-PCS; principal; 2017-02-01 15:15)
PROC: 0TC78ZZ Extirpation of Matter from Left Ureter, Via Natural or Artificial Opening Endoscopic (ICD-10-PCS; principal; 2017-02-01 15:15)
DX: N20.2 Calculus of kidney with calculus of ureter (principal); N17.9 Acute kidney failure, unspecified; K76.89 Other specified diseases of liver